=== PATIENT | female | born 1995 | race American Indian/Alaskan Native ===

== ENCOUNTER 2018-07-06 09:26 | Day surgery (SDC) | payer MEDICAID ==
[2018-07-06] MEDS ORDERED: ZOFRAN IV PRN (09:54)
[2018-07-06] MEDS ORDERED: DILAUDID IV PRN (09:54)
--- NOTE | 2018-07-06 09:56 | Anesthesia Day of Surgery ---
Anesthesia Day of Surgery - Day of Surgery Patient Examined: Yes Patient H&P Reviewed: Yes Patient is NPO: Yes Beta Blockers: No (N/A)
--- NOTE | 2018-07-06 09:59 | Anesthesia Consultation ---
Anesthesia Consult and Med Hx Date of service: 07/06/18 - Airway Anesthetic Teeth Evaluation: Good ROM Head & Neck: Adequate Mental/Hyoid Distance: Adequate Mallampati Class: Class II Intubation Access Assessment: Probably Good - Pulmonary Exam CTA: Yes - Cardiac Exam Cardiac Exam: No Murmur - Pre-Operative Health Status ASA Pre-Surgery Classification: ASA3 Proposed Anesthetic Plan: General - Pulmonary Hx Smoking: Yes (1 cig/day x2yrs) Hx Asthma: No Hx Respiratory Symptoms: No SOB: No COPD: No Hx Pneumonia: No - Cardiovascular System Hx Hypertension: No - Central Nervous System Hx Neuromuscular Disorder: No Hx Seizures: No Hx Psychiatric Problems: Yes - Gastrointestinal Hx Gastroesophageal Reflux Disease: Yes (diet controlled; asymptomatic today) - Endocrine Hx Renal Disease: No Hx End Stage Renal Disease: No Hx Insulin Dependent Diabetes: No Hx Non-Insulin Dependent Diabetes: No Hx Thyroid Disease: No - Hematic Hx Anemia: Yes (Past hx) Hx Sickle Cell Disease: No - Other Systems Hx Alcohol Use: Yes (occas) Hx Cancer: No Hx Obesity: Yes (BMI 45) - Additional Comments Anesthesia Medical History Comments: PMH smoking, obesity. No hx anesthetic complications.
[2018-07-06] MEDS ORDERED: VERSED IV NR (10:00)
[2018-07-06] MEDS ORDERED: LACTATED RINGERS 1,000 ML IV SCH ×2 (10:00→12:00)
[2018-07-06] MEDS ORDERED: XYLOCAINE MPF 2% ONE (11:53)
[2018-07-06] MEDS ORDERED: DIPRIVAN 10 MG/ML IV ONE (11:53)
[2018-07-06] MEDS ORDERED: SUBLIMAZE ONE (11:54)
[2018-07-06] MEDS ORDERED: METHERGINE IM ONE ×2 (12:44→12:47)
[2018-07-06] MEDS ORDERED: NACL 0.9% IR ONE (12:44)
[2018-07-06] MEDS ORDERED: TORADOL ONE (13:00)
[2018-07-06] MEDS ORDERED: ZOFRAN ONE (13:00)
--- NOTE | 2018-07-06 13:59 | Operative Report ---
Operative Report Operative Report: Preoperative diagnosis: Missed . Postoperative diagnosis: Same. Procedure: Suction dilation and curettage. Surgeon: Dr. Walters Salt Lifter: none Anesthesia: general IVF: RL 1 liter EBL: 100 mL Complications: none Procedure details: The risks, benefits, and alternatives of the procedure were discussed in detail with the patient which included but not limited to the risk of infection, hemorrhage requiring blood transfusion, and uterine perforation. The patient expressed understanding, her questions were answered, and she gave informed consent. The patient was taken to the operating room with an IV fluid infusing Ringers lactate. In the operating room, she was placed in the dorsal supine position and given general anesthesia. She was then placed on the stirrups in a dorsolithotomy position. The perineum, vagina, and cervix were washed and she was prepared and draped in usual sterile fashion. Examination under anesthesia revealed normal external genitalia and vagina. The cervix was closed and posterior, with no gross lesions, no bleeding. The uterus was 9 week size, anteverted and mobile. The adnexae were nonpalpable. A weighted speculum was placed on the posterior vaginal wall. The anterior lip of the cervix was grasped a single-tooth tenaculum. The cervical os was dilated. An 8 mm suction curette was connected to the suction device and introduced into the uterine cavity up to the fundus. The suction device was turned on and the curette was rotated. Moderate amount of products of conception was suctioned. The suction was removed and a gentle curettage was performed until a gritty texture was noticed. The suction device was re-introduced into the uterine cavity and it was rotated to clear the uterus of the remaining products of conception. The instruments were then removed from the uterine cavity. The counts of laps, needles, sponges, and instruments were correct 2. The patient tolerated the procedure well. She was awakened from the anesthesia and taken to the recovery room in a stable condition.
--- NOTE | 2018-07-06 14:19 | Post Anesthesia Evaluation ---
- Post Anesthesia Evaluation Patient Participated: Yes Airway Patent: Yes Stable Respiratory Function: Yes Nausea/Vomiting: Yes (Mild, resolved with IV antiemetics) Temp > 96.8F: Yes Pain Manageable: Yes Adequeate Hydration: Yes Anesthesia Complications: No Block Receding Appropriately: Not Applicable Patient on Ventilator: No
[2018-07-06 17:50] VITALS: BP 135/68
== END 2018-07-06 14:40 | disposition home or self-care (01) ==
LOC: OR 09:26
PROVIDERS: ATTEND Obstetrics & Gynecology
DX: O02.1 Missed abortion (principal); K21.9 Gastro-esophageal reflux disease without esophagitis; F32.9 Major depressive disorder, single episode, unspecified; F41.9 Anxiety disorder, unspecified; G43.909 Migraine, unspecified, not intractable, without status migrainosus; F17.210 Nicotine dependence, cigarettes, uncomplicated; E66.9 Obesity, unspecified; Z68.42 Body mass index [BMI] 45.0-49.9, adult; Z72.89 Other problems related to lifestyle; Z98.890 Other specified postprocedural states
CPT/HCPCS: 59820; 88305; J1885; J2210; J2250; J2405; J2704; J3010; J7120

== ENCOUNTER 2018-12-30 15:06 | Emergency (ER) | payer MEDICAID, OTHER ==
--- NOTE | 2018-12-30 16:12 | Emergency Department Report ---
ED General Adult HPI - General Chief complaint: High BP Stated complaint: 16 WKS /HBP 185/167 Time Seen by Provider: 12/30/18 15:29 Source: patient Mode of arrival: Ambulatory Limitations: No Limitations - History of Present Illness Initial comments: Ms. Barroso is a very pleasant, intelligent 23 yo female who is currently 16 weeks . She has had fluctuating blood pressure reading for several months. Has been followed closely by primary OBGYN and [facility] high risk. Has had mild headache which is typical for patient. Currently pain free. No chest pain. No blurry vision. Has been taking BP readings 3x/day. SBP range from 130-180 mm Hg. Only borderline high in physician office. This is patient's fourth . 2 vaginal deliveries. Miscarriage last summer requiring D&C -: Gradual, month(s) (3) Severity scale (0 -10): 0 Consistency: intermittent Improves with: rest Associated Symptoms: denies other symptoms Treatments Prior to Arrival: none - Related Data Home Medications Medication Instructions Recorded Confirmed Last Taken No Known Home Medications [No 10/25/13 07/05/18 Unknown Reported Home Medications] Allergies Allergy/AdvReac Type Severity Reaction Status Date / Time No Known Allergies Allergy Verified 12/04/18 08:57 ED Review of Systems ROS: Stated complaint: 16 WKS /HBP 185/167 Other details as noted in HPI Comment: All other systems reviewed and negative Constitutional: denies: fever, malaise Cardiovascular: denies: chest pain ED Past Medical Hx - Past Medical History Previous Medical History?: Yes Hx Hypertension: No Hx Congestive Heart Failure: No Hx Diabetes: No Hx Deep Vein Thrombosis: No Hx Renal Disease: No Hx Sickle Cell Disease: No Hx Headaches / Migraines: Yes (Migraines) Hx Seizures: No Hx Asthma: No Hx COPD: No Hx HIV: No Additional medical history: miscarriage. Herpes 2. Kawasaki disease age 2 - Surgical History Past Surgical History?: Yes Additional Surgical History: D&C sinus surgery I&D - Family History Family history: hypertension - Social History Smoking Status: Former Smoker Substance Use Type: None - Medications Home Medications: Home Medications Medication Instructions Recorded Confirmed Last Taken Type No Known Home Medications [No 10/25/13 07/05/18 Unknown History Reported Home Medications] ED Physical Exam - General Limitations: No Limitations ED Course Vital Signs 12/30/18 12/30/18 12/30/18 15:16 15:35 15:36 Temperature 98 F 99.1 F Pulse Rate 100 H 105 H Respiratory 16 18 18 Rate Blood Pressure 142/92 Blood Pressure 114/77 [Left] O2 Sat by Pulse 100 100 100 Oximetry ED Medical Decision Making - Medical Decision Making Asymptomatic elevated blood pressure readings, BP 108/64 here in ED. Recommended taking BP equipment to next physician appointment on Wednesday to confirm appropriate reading. Given reassurance Dc'd home No current complications according to presentation today Critical care attestation.: If time is entered above; I have spent that time in minutes in the direct care of this critically ill patient, excluding procedure time. ED Disposition Clinical Impression: Elevated blood pressure affecting in first trimester, antepartum Disposition: DC- TO HOME OR SELFCARE Is pt being admited?: No Does the pt Need Aspirin: No Condition: Stable Additional Instructions: Please take your blood pressure machine to your next doctor's appointment to compare measurements.
== END 2018-12-30 16:20 | disposition home or self-care (01) ==
LOC: ED 15:06
CPT/HCPCS: 99282

== ENCOUNTER 2019-05-03 19:26 | Outpatient (CLI) | payer MEDICAID ==
[2019-05-03 21:18] LABS: Bilirubin,Urine NEG (Negative); Blood,Urine NEG (Negative); Color,Urine Yellow (Yellow); Protein,Urine <15 mg/dL mg/dL (Negative); Urobilinogen,Urine < 2.0 mg/dL (<2.0)
[2019-05-03 21:56] LABS: Hematocrit 34.4 % (30.3-42.9); Hemoglobin 11.2 gm/dl (10.1-14.3); Mean Corpuscular HGB Conc 33 % (30-34); Mean Corpuscular Volume 80 fl (79-97); Platelet Count 275 K/mm3 (140-440); Red Blood Count 4.32 M/mm3 (3.65-5.03); Red Cell Distribution Width 14.8 % (13.2-15.2)
[2019-05-03 22:19] LABS: Alanine Aminotransferase 19 units/L (7-56)
[2019-05-03] MEDS ORDERED: PERCOCET 5/325 PO ONE (23:01)
[2019-05-04 00:11] VITALS: BP 120/65
== END 2019-05-04 00:20 | disposition home or self-care (01) ==
LOC: TRG 19:26
PROVIDERS: ATTEND Obstetrics & Gynecology
DX: O26.893 Other specified pregnancy related conditions, third trimester (principal); R51 Headache; M79.606 Pain in leg, unspecified; R42 Dizziness and giddiness; Z3A.33 33 weeks gestation of pregnancy
CPT/HCPCS: 36415; 59025; 81001; 82565; 83615; 84450; 84460; 84550; 85027

== ENCOUNTER 2019-05-05 14:56 | Outpatient (CLI) | payer MEDICAID ==
[2019-05-05 16:30] LABS: Alanine Aminotransferase 18 units/L (7-56)
[2019-05-05 16:38] LABS: Bilirubin,Urine NEG (Negative); Blood,Urine NEG (Negative); Color,Urine Yellow (Yellow); Mucus,Urine 1+ /HPF; Protein,Urine <15 mg/dL mg/dL (Negative); Urobilinogen,Urine < 2.0 mg/dL (<2.0); WBC,Urine < 1.0 /HPF (0.0-6.0)
[2019-05-05 17:15] LABS: Hematocrit 34.8 % (30.3-42.9); Hemoglobin 11.1 gm/dl (10.1-14.3); Mean Corpuscular HGB Conc 32 % (30-34); Mean Corpuscular Volume 81 fl (79-97); Platelet Count 319 K/mm3 (140-440); Red Blood Count 4.31 M/mm3 (3.65-5.03); Red Cell Distribution Width 15.1 % (13.2-15.2)
[2019-05-05 17:18] VITALS: BP 118/76
== END 2019-05-05 17:54 | disposition home or self-care (01) ==
LOC: TRG 14:56
PROVIDERS: ATTEND Obstetrics & Gynecology
DX: O47.03 False labor before 37 completed weeks of gestation, third trimester (principal); O13.3 Gestational [pregnancy-induced] hypertension without significant proteinuria, third trimester; Z3A.34 34 weeks gestation of pregnancy
CPT/HCPCS: 36415; 59025; 81001; 82565; 83615; 84450; 84460; 84550; 85027

== ENCOUNTER 2019-05-25 22:35 | Outpatient (CLI) | payer MEDICAID ==
[2019-05-25 22:56] VITALS: BP 130/89
== END 2019-05-26 00:25 | disposition home or self-care (01) ==
LOC: TRG 22:35
PROVIDERS: ATTEND Obstetrics & Gynecology
DX: O47.03 False labor before 37 completed weeks of gestation, third trimester (principal); O13.3 Gestational [pregnancy-induced] hypertension without significant proteinuria, third trimester; Z3A.36 36 weeks gestation of pregnancy
CPT/HCPCS: 59025

== ENCOUNTER 2019-05-26 20:29 | Inpatient (IN) | payer MEDICAID ==
[2019-05-26] MEDS ORDERED: AMPICILLIN/NS 2 GM/100 ML 2 GM/100 ML BAG IV ONE (20:49)
[2019-05-26] MEDS ORDERED: XYLOCAINE 2% INFILTRATI ONE (20:49)
[2019-05-26] MEDS ORDERED: BRETHINE SUB-Q PRN (20:49)
[2019-05-26] MEDS ORDERED: PITOCin/NS 20 UNIT/1000ML DRIP 20 UNITS/1,000 ML BAG IV SCH (21:00)
[2019-05-26 22:11] LABS: Hemoglobin 10.5 gm/dl (10.1-14.3); Mean Corpuscular HGB Conc 34 % (30-34); Mean Corpuscular Volume 80 fl (79-97); Platelet Count 287 K/mm3 (140-440); Red Cell Distribution Width 15.4 % (13.2-15.2)
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
[2019-05-26 22:35] LABS: Alanine Aminotransferase 11 units/L (7-56); BUN/Creatinine Ratio 11; Blood Urea Nitrogen 8 mg/dL (7-17); Calcium 8.5 mg/dL (8.4-10.2); Hemolysis Index 0; Uric Acid 5.9 mg/dL (3.5-7.6)
[2019-05-26] MEDS: LACTATED RINGERS 1,000 ML IV SCH (23:00)
[2019-05-27 00:01] LABS: Bilirubin,Urine NEG (Negative); Blood,Urine NEG (Negative); Color,Urine Yellow (Yellow); Mucus,Urine FEW /HPF; Protein,Urine <15 mg/dL mg/dL (Negative); Urobilinogen,Urine < 2.0 mg/dL (<2.0)
[2019-05-27] MEDS: PITOCin/NS 30 UNIT/500ML 30 UNITS/500 ML BAG IV SCH ×2 (00:19→16:00)
[2019-05-27] MEDS: VALTREX PO SCH ×3 (00:31→21:45)
[2019-05-27] MEDS: NORMODYNE PO SCH ×2 (00:31→09:48)
[2019-05-27] MEDS ORDERED: TYLENOL PO PRN (05:51)
[2019-05-27] MEDS: AMPICILLIN/NS 1 GM/50 ML 1 GM/50 ML BAG IV SCH ×5 (06:18→21:45)
[2019-05-27] MEDS: SUBLIMAZE IV PRN ×2 (08:25→19:59)
--- NOTE | 2019-05-27 09:05 | Progress Note ---
Assessment and Plan A: at 37 1/7 weeks gestation. Mild preeclampsia (BPs controlled with Labetalol). IUGR. GBS positive (on prophylaxis). HSV 2 positive (suppressed with Valtrex and no lesions or prodromal symptoms). Obesity. P: Continue Pitocin induction of labor. Continuous EFM. Continue po Labetalol and po Valtrex. Anticipate vaginal . Subjective - Subjective Date of service: 05/27/19 Principal diagnosis: Mild preeclampsia at 37 1/7 weeks gestation Interval history: Labor is being induced at 37 1/7 weeks gestation due to mild preeclampsia, IUGR. BPs have been in normal range overnight. Patient denies headache, visual disturbance, nausea or vomiting, epigastric pain. Patient reports mild edema of hands and feet bilaterally. Patient received low dose Pitocin overnight. Patient denies leaking of fluid or vaginal bleeding. She reports active movement. Patient reports: movement normal, contractions, no new complaints, no loss of fluid, no vaginal bleeding Objective - Vital Signs Vital Signs: Vital Signs - 12hr 05/26/19 05/26/19 05/26/19 21:18 21:21 23:59 Temperature 98.4 F Pulse Rate 79 79 88 Respiratory 16 Rate Blood Pressure 130/71 114/57 Blood Pressure 130/71 [Right] 05/27/19 05/27/19 05/27/19 00:30 00:31 01:00 Temperature Pulse Rate 84 84 88 Respiratory Rate Blood Pressure 115/56 115/56 128/65 Blood Pressure [Right] 05/27/19 05/27/19 05/27/19 01:30 02:00 02:30 Temperature Pulse Rate 81 89 85 Respiratory Rate Blood Pressure 104/54 116/55 105/48 Blood Pressure [Right] 05/27/19 05/27/19 05/27/19 03:31 04:01 04:31 Temperature Pulse Rate 99 H 85 110 H Respiratory Rate Blood Pressure 103/51 104/55 100/55 Blood Pressure [Right] 05/27/19 05/27/19 05/27/19 05:39 06:00 06:21 Temperature 98.4 F Pulse Rate 92 H 73 Respiratory 16 14 Rate Blood Pressure 110/53 109/56 Blood Pressure 118/57 [Right] 05/27/19 05/27/19 05/27/19 06:32 07:00 07:30 Temperature Pulse Rate 73 76 72 Respiratory Rate Blood Pressure 118/57 123/58 124/56 Blood Pressure [Right] 05/27/19 05/27/19 05/27/19 08:00 08:03 08:08 Temperature 98.2 F Pulse Rate 87 88 Respiratory 16 Rate Blood Pressure 108/51 109/54 Blood Pressure [Right] 05/27/19 08:30 Temperature Pulse Rate 74 Respiratory Rate Blood Pressure 118/66 Blood Pressure [Right] - Exam Abdomen: Present: normal appearance, soft. Absent: distention, tenderness, guarding, rigidity Uterus: Present: normal, fundal height above umbilicus. Absent: tenderness FHR: category 1 Uterine Contraction Monitor Mode: External Uterine Contraction Pattern: Irregular Uterine Contraction Intensity: Moderate Extremities: edema - Labs Labs: Abnormal Labs 05/26/19 05/26/19 21:44 21:44 WBC 11.8 H MCH 27 L RDW 15.4 H Carbon Dioxide 21 L Lactate Dehydrogenase 201 H Albumin 3.0 L Laboratory Results - last 24 hr 05/26/19 05/26/19 05/26/19 21:44 21:44 21:44 WBC 11.8 H RBC 3.90 Hgb 10.5 Hct 31.0 MCV 80 MCH 27 L MCHC 34 RDW 15.4 H Plt Count 287 Sodium 137 Potassium 4.1 Chloride 103.5 Carbon Dioxide 21 L Anion Gap 17 BUN 8 Creatinine 0.7 Estimated GFR > 60 BUN/Creatinine Ratio 11 Glucose 72 Uric Acid 5.9 Calcium 8.5 Total Bilirubin 0.20 AST 12 ALT 11 Alkaline Phosphatase 115 Lactate Dehydrogenase 201 H Total Protein 6.8 Albumin 3.0 L Albumin/Globulin Ratio 0.8 Urine Color Urine Turbidity Urine pH Ur Specific [place] Urine Protein Urine Glucose (UA) Urine Ketones Urine Blood Urine Nitrite Urine Bilirubin Urine Urobilinogen Ur Leukocyte Esterase Urine WBC (Auto) Urine RBC (Auto) U Epithel Cells (Auto) Urine Mucus Blood Type B POSITIVE Antibody Screen Negative 05/26/19 22:30 WBC RBC Hgb Hct MCV MCH MCHC RDW Plt Count Sodium Potassium Chloride Carbon Dioxide Anion Gap BUN Creatinine Estimated GFR BUN/Creatinine Ratio Glucose Uric Acid Calcium Total Bilirubin AST ALT Alkaline Phosphatase Lactate Dehydrogenase Total Protein Albumin Albumin/Globulin Ratio Urine Color Yellow Urine Turbidity Clear Urine pH 6.0 Ur Specific [place] 1.015 Urine Protein <15 mg/dl Urine Glucose (UA) Neg Urine Ketones Neg Urine Blood Neg Urine Nitrite Neg Urine Bilirubin Neg Urine Urobilinogen < 2.0 Ur Leukocyte Esterase Neg Urine WBC (Auto) 1.0 Urine RBC (Auto) 1.0 U Epithel Cells (Auto) 3.0 Urine Mucus Few Blood Type Antibody Screen
[2019-05-27] MEDS ORDERED: NARCAN 2 MG/2 ML IV PRN (21:36)
--- NOTE | 2019-05-27 21:36 | Anesthesia Day of Surgery ---
Anesthesia Day of Surgery - Day of Surgery Patient Examined: Yes Patient H&P Reviewed: Yes Patient is NPO: No
--- NOTE | 2019-05-27 21:36 | Anesthesia Consultation ---
Anesthesia Consult and Med Hx Date of service: 05/27/19 - Airway Anesthetic Teeth Evaluation: Caps ROM Head & Neck: Adequate Mental/Hyoid Distance: Adequate Mallampati Class: Class II Intubation Access Assessment: Good - Pulmonary Exam CTA: Yes - Cardiac Exam Cardiac Exam: RRR - Pre-Operative Health Status ASA Pre-Surgery Classification: ASA2, ASA3 Proposed Anesthetic Plan: Epidural - Pulmonary Hx Smoking: Yes (1 cig/day x2yrs) Hx Asthma: No Hx Respiratory Symptoms: No SOB: No COPD: No Hx Pneumonia: No - Cardiovascular System Hx Hypertension: Yes ( only) - Central Nervous System Hx Neuromuscular Disorder: No Hx Seizures: No Hx Psychiatric Problems: Yes (depression/anxiety (no meds during )) - Gastrointestinal Hx Gastroesophageal Reflux Disease: Yes (diet controlled; asymptomatic today) - Endocrine Hx Renal Disease: No Hx End Stage Renal Disease: No Hx Insulin Dependent Diabetes: No Hx Non-Insulin Dependent Diabetes: No Hx Thyroid Disease: No Hx Hypothyroidism: No Hx Hyperthyroidism: No - Hematic Hx Anemia: Yes Hx Sickle Cell Disease: No - Other Systems Hx Alcohol Use: No Hx Cancer: No Hx Obesity: Yes (BMI 45)
[2019-05-27] MEDS: LACTATED RINGERS 1,000 ML IV SCH (21:45)
[2019-05-27] MEDS ORDERED: fentaNYL-BUPIV 2 MCG/ML-0.125% 200 MCG/100 ML BAG EPIDURAL SCH (22:00)
[2019-05-27] MEDS ORDERED: DULCOLAX PR PRN (22:41)
[2019-05-27] MEDS ORDERED: MILK OF MAGNESIA PO PRN (22:41)
[2019-05-27] MEDS ORDERED: TUCKS PAD TP PRN (22:41)
[2019-05-27] MEDS ORDERED: LANSINOH TP PRN (22:41)
[2019-05-27] MEDS ORDERED: BENADRYL PO PRN (22:41)
--- NOTE | 2019-05-27 22:48 | Procedure Note ---
OB Delivery Note - Delivery Date of Delivery: 05/27/19 Surgeon: GLEN OGLESBY Estimated blood loss: 200cc - Vaginal Delivery presentation: vertex Delivery position: OA Intrapartum events: none Delivery induction: oxytocin Delivery monitor: external FHT, external uterine Route of delivery: Delivery placenta: spontaneous Delivery cord: 3 umbilical vessels Delivery laceration: none Anesthesia: epidural Delivery comments: Spontaneous vaginal delivery at 22:03 of liveborn female weighing 5 lb. 1 oz. over intact perineum with apgars of 8/9. Epidural anesthesia. Baby placed skin to skin on mom's chest immediately after . Spontaneous cry and respirations. Baby bulb suctioned and dried. 3 vessel cord double clamped and cut. Spontaneous delivery of intact placenta and membranes by holliday mechanism. EBL 200 cc. Pitocin to IV fluids after delivery of placenta. Fundus firm and midline. Vaginal sweep negative. No lacerations noted. Sponge count correct. Mother and baby stable in birthing room.
[2019-05-27] MEDS ORDERED: SODIUM CHLORIDE FLUSH SYRINGE 10 ML IV NR (23:00)
[2019-05-28] MEDS: IBUPROFEN PO SCH ×3 (00:44→20:51)
[2019-05-28] MEDS: NORCO 5/325 PO PRN (00:44)
--- NOTE | 2019-05-28 11:00 | Progress Note ---
Assessment and Plan A: day 1 S/P spontaneous vaginal delivery. P: Patient to ambulate. Continue current management. Subjective - Subjective Date of service: 05/28/19 Principal diagnosis: day 1 S/P Interval history: day 1 S/P spontaneous vaginal delivery. Doing well. Patient reports a small amount of lochia. Voiding without difficulty, passing gas, tolerating a regular diet without nausea or vomiting, ambulating well. Patient denies cough, chest pain, SOB, HODGE, dizziness, abdominal pain, leg pain, or heavy vaginal bleeding. Patient reports: appetite normal, voiding normally, pain well controlled, flatus, ambulating normally, no dizzy ambulation, no nauseated : doing well Objective - Vital Signs Latest vital signs: Vital Signs Temp Pulse Resp BP BP Pulse Ox 05/28/19 08:51 98.2 F 71 18 134/73 100 05/28/19 04:10 98.2 F 64 20 102/52 97 05/28/19 00:25 98.4 F 72 18 120/57 98 05/27/19 23:31 92 H 128/60 05/27/19 23:16 69 125/61 05/27/19 23:01 76 134/70 05/27/19 22:46 99 H 134/60 05/27/19 22:31 92 H 146/80 05/27/19 22:16 104 H 117/70 05/27/19 21:59 113 H 99 05/27/19 21:54 71 99 05/27/19 21:49 82 99 05/27/19 21:48 72 115/55 05/27/19 21:46 68 112/54 05/27/19 21:44 70 110/56 98 05/27/19 21:42 67 111/53 05/27/19 21:40 71 109/52 05/27/19 21:39 72 98 05/27/19 21:38 69 105/51 05/27/19 21:36 70 103/52 05/27/19 21:34 68 100/50 99 05/27/19 21:32 88 100/53 05/27/19 21:30 78 111/53 05/27/19 21:29 87 97 05/27/19 21:28 78 111/55 05/27/19 21:26 54 L 92 05/27/19 21:24 95 H 98 06/29/19 21:23 86 108/51 05/27/19 21:19 91 H 119/56 98 05/27/19 19:46 83 142/90 05/27/19 19:40 97.9 F 05/27/19 18:30 93 H 111/58 05/27/19 18:02 116 H 135/79 05/27/19 17:30 76 121/59 05/27/19 17:28 82 121/60 05/27/19 17:02 79 135/65 05/27/19 16:30 83 123/59 05/27/19 16:01 120 H 130/64 05/27/19 15:30 108 H 138/85 05/27/19 15:01 98 H 127/61 05/27/19 14:30 74 130/58 05/27/19 14:00 80 121/60 05/27/19 13:31 89 126/61 05/27/19 12:32 91 H 112/71 05/27/19 12:00 86 115/66 05/27/19 11:30 87 119/73 05/27/19 11:01 85 110/62 Intake and Output 05/27/19 05/28/19 05/28/19 23:59 07:59 15:59 Intake Total 58.333 600 Output Total 100 1450 Balance -41.667 -850 Intake: IV 58.333 AMPICILLIN/NS 1 GM/50 ML 50 1 gm In 50 ml @ 100 mls/ hr IV Q4HR [facility] Rx#: [id number] PITOCin/NS 30 UNIT/500ML 8.333 30 units In 500 ml @ Per Protocol IV TITR ABY Rx#: [id number] Oral 600 Output: Urine 100 1450 Straight 100 Void 1450 Other: Total, Intake Amount 360 Total, Output Amount 550 # Voids Void 3 Estimated Blood Loss 150 - Exam Abdomen: Present: normal appearance, soft. Absent: distention, tenderness, guarding, rigidity Uterus: Present: normal, firm, fundal height below umbilicus. Absent: bogginess, tenderness Extremities: Present: normal, edema. Absent: tenderness
[2019-05-28 11:08] LABS: Hemoglobin 10.5 gm/dl (10.1-14.3)
[2019-05-29] MEDS: IBUPROFEN PO SCH (05:34)
[2019-05-29] MEDS ORDERED: BOOSTRIX IM ONE (06:00)
--- NOTE | 2019-05-29 12:11 | Progress Note ---
Assessment and Plan - Patient Problems (1) Status post normal vaginal delivery Current Visit: Yes Status: Acute Plan to address problem: PPD 2 - headache Continue routine PP orders Anticipate discharge in 24 hours if PIH labs WNL (2) Headache Current Visit: Yes Status: Acute Qualifiers: Headache chronicity pattern: acute headache Plan to address problem: BPs stable: 130/82, 132/76, 118/75 Denies visual disturbances, RUQ pain or N/V PIH labs ordered On NORCO and Ibuprofen prn for pain Subjective - Subjective Date of service: 05/29/19 Principal diagnosis: PPD #2; s/p Interval history: see H&P, OB Progress Note, OB Delivery Procedure Note and PP/[employer] Progress Note Patient reports: appetite normal, voiding normally, pain well controlled, ambulating normally, other (reports headache but denies visual disturbances or RUQ pain), no dizzy ambulation, no nauseated [place]: doing well, nursing well Objective - Vital Signs Latest vital signs: Vital Signs Temp Pulse Resp BP BP Pulse Ox 05/29/19 09:00 98.4 F 79 20 118/75 05/29/19 05:34 20 05/29/19 00:40 98.0 F 79 18 132/76 98 05/28/19 20:51 20 05/28/19 18:02 98.5 F 18 05/28/19 18:01 122.0 F H 77 18 130/82 97 05/28/19 12:50 98.5 F 72 18 115/61 99 Intake and Output 05/28/19 05/29/19 05/29/19 23:59 07:59 15:59 Intake Total 480 600 240 Balance 480 600 240 Intake: Oral 480 240 Intake, Free Water 600 Other: Total, Intake Amount 480 240 # Voids Void 1 2 # Bowel Movements 2 - Exam Cardiovascular: Present: Regular rate Lungs: Present: Clear to auscultation Abdomen: Present: normal appearance, soft Vulva: both: normal Uterus: Present: normal, firm, fundal height below umbilicus Extremities: Present: edema Comments: scant lochia
[2019-05-29 13:31] LABS: Hematocrit 33.7 % (30.3-42.9); Mean Corpuscular HGB Conc 33 % (30-34); Mean Corpuscular Volume 80 fl (79-97); Platelet Count 314 K/mm3 (140-440); Red Cell Distribution Width 15.7 % (13.2-15.2)
[2019-05-29] MEDS: NORCO 5/325 PO PRN ×2 (14:32→22:08)
[2019-05-29 22:08] LABS: Bilirubin,Urine NEG (Negative); Blood,Urine LG (Negative); Color,Urine Yellow (Yellow); Protein,Urine <15 mg/dL mg/dL (Negative); Urobilinogen,Urine < 2.0 mg/dL (<2.0)
[2019-05-30] MEDS: IBUPROFEN PO SCH ×2 (00:10→05:44)
[2019-05-30 08:11] VITALS: BP 135/80
--- NOTE | 2019-05-30 12:46 | Progress Note ---
Assessment and Plan - Patient Problems (1) Status post normal vaginal delivery Current Visit: Yes Status: Acute Plan to address problem: D/C today f/u in office in 1 week for B/P check (2) Anxiety and depression Current Visit: Yes Status: Acute Plan to address problem: Stable No suicidal/homicidal ideations (3) Obesity Current Visit: Yes Status: Acute Subjective - Subjective Date of service: 05/30/19 Principal diagnosis: PPD #3; s/p Interval history: See admission H & P, OB delivery summary and PP progress notes Patient reports: appetite normal, voiding normally, pain well controlled, flatus, bowel movement, ambulating normally : doing well, bottle feeding (and ) Objective - Vital Signs Latest vital signs: Vital Signs Temp Pulse Resp BP BP Pulse Ox 05/30/19 07:44 98.1 F 57 L 18 135/80 05/30/19 05:44 20 05/30/19 00:49 97.8 F 57 L 20 117/68 100 05/30/19 00:10 20 05/29/19 22:08 18 05/29/19 16:05 98.3 F 102 H 18 115/71 Intake and Output 05/29/19 05/30/19 05/30/19 23:59 07:59 15:59 Intake Total 360 840 Balance 360 840 Intake: Oral 360 840 Other: Total, Intake Amount 240 480 # Voids Void 1 1 - Exam Breasts: Present: normal Cardiovascular: Present: Regular rate Lungs: Present: Normal air movement Abdomen: Present: soft, normal bowel sounds Uterus: Present: firm, fundal height below umbilicus (U-2) Extremities: Present: normal Deep Tendon Reflex Grade: Normal +2 - Labs Labs: Abnormal lab results 05/29/19 05/29/19 Range/Units 13:16 13:16 MCH 26 L (28-32) pg RDW 15.7 H (13.2-15.2) % Lactate Dehydrogenase 247 H (91-180) units/L
--- NOTE | 2019-05-30 12:51 | Discharge Summary ---
Providers - Providers Date of Admission: 05/27/19 19:00 Date of discharge: 05/30/19 Attending physician: CIERA FAUSTIN MD Primary care physician: CIERA FAUSTIN MD Hospitalization Reason for admission: induction of labor Delivery: Episiotomy: none Laceration: none Incision: normal Other procedures: none complications: none Discharge diagnosis: IUP at term delivered [place] baby: female Hospital course: See admission H & P, OB delivery summary and PP progress notes Condition at discharge: Stable Disposition: DC-01 TO HOME OR SELFCARE - Discharge Diagnoses (1) Status post normal vaginal delivery Status: Acute (2) Anxiety and depression Status: Acute (3) Obesity Status: Acute Plan - Provider Discharge Summary Activity: routine, no sex for 6 weeks, no heavy lifting 4 weeks, no strenuous exercise Diet: routine Instructions: routine Additional instructions: [] Smoking cessation referral if applicable(refer to patient education folder for contact #) [] Refer to [facility]'s [facility] Booklet Call your doctor immediately for: * Fever > 100.5 * Heavy vaginal bleeding ( >1 pad per hour) * Severe persistent headache * Shortness of breath * Reddened, hot, painful area to leg or breast * Drainage or odor from incision. * F/U in 1 week for B/P check - Follow up plan Follow up: CIERA FAUSTIN MD [Primary Care Provider] - 7 Days
== END 2019-05-30 16:30 | disposition home or self-care (01) | DRG 774 ==
LOC: LD 20:29 → UNDOADMIN 20:29 → LD 05-27 19:00 → OB 05-28 00:13
PROVIDERS: ADMIT Obstetrics & Gynecology; ATTEND Obstetrics & Gynecology
PROC: 10E0XZZ Delivery of Products of Conception, External Approach (ICD-10-PCS; principal; 2019-05-27)
PROC: 3E033VJ Introduction of Other Hormone into Peripheral Vein, Percutaneous Approach (ICD-10-PCS; 2019-05-27)
PROC: 3E0R3BZ Introduction of Anesthetic Agent into Spinal Canal, Percutaneous Approach (ICD-10-PCS; 2019-05-27)
PROC: 00HU33Z Insertion of Infusion Device into Spinal Canal, Percutaneous Approach (ICD-10-PCS; 2019-05-27)
DX: O14.04 Mild to moderate pre-eclampsia, complicating childbirth (principal); O99.344 Other mental disorders complicating childbirth; O98.52 Other viral diseases complicating childbirth; O99.334 Smoking (tobacco) complicating childbirth; F17.200 Nicotine dependence, unspecified, uncomplicated; F32.9 Major depressive disorder, single episode, unspecified; O99.62 Diseases of the digestive system complicating childbirth; K21.9 Gastro-esophageal reflux disease without esophagitis; O99.214 Obesity complicating childbirth; E66.9 Obesity, unspecified; O36.5930 Maternal care for other known or suspected poor fetal growth, third trimester, not applicable or unspecified; O99.824 Streptococcus B carrier state complicating childbirth; B00.9 Herpesviral infection, unspecified; Z3A.37 37 weeks gestation of pregnancy; Z37.0 Single live birth; Z82.49 Family history of ischemic heart disease and other diseases of the circulatory system; Z79.899 Other long term (current) drug therapy
CPT/HCPCS: 36415; 59025; 80053; 81001; 83615; 84450; 84460; 84550; 85014; 85018; 85027; 86592; 86850; 86900; 86901; 88307; 90471; 90715; G0378; A6250; J0290; J2590; J3010; J7120

== ENCOUNTER 2021-10-21 06:41 | Emergency (ER) | payer OTHER ==
--- NOTE | 2021-10-21 06:48 | Emergency Department Report ---
ED General Adult HPI - General Chief complaint: Chest Pain Stated complaint: CHEST PAIN PUI?: No Time Seen by Provider: 10/21/21 06:48 Source: patient, RN notes reviewed Mode of arrival: Ambulatory Limitations: No Limitations - History of Present Illness Initial comments: During the history and physical examination, I am chaperoned by Stephanie Penny This patient is a 26-year-old female. She is not known to myself previously. She has a history of Kawasaki disease, and was reportedly cleared by her heel painter from this perspective a few years ago, no ischemia, with past medical history of body mass index of 43.5. The patient presents to the ER today with a complaint of nonexertional intermittent nontraumatic central and left-sided chest wall pain, present for 4 days. The chest wall pain does not radiate to the back, arms or neck. There is no vomiting or diaphoresis. There is no personal or family history of DVT/PE/CAD/ACS. The patient has not attempted [id number] analgesia. Patient is right-hand dominant, and does a lot of heavy lifting for work. The patient denies severe headache, neck pain, abdominal pain, vomiting, weakness, numbness, leg pain, leg swelling, oral contraceptive use, DVT/PE risk factors. The chest wall pain does not radiate anywhere, is aching, sharp and throbbing, increases with palpation and decreases with rest. -: Gradual, days(s) Location: chest (Central and left-sided chest wall) Radiation: non-radiation Quality: other Consistency: other Improves with: other Worsens with: other - Related Data Home Medications Medication Instructions Recorded Confirmed Last Taken labetaloL [Labetalol 100mg TAB] 1 tab PO BID 05/03/19 05/27/19 05/26/19 09:00 Ferrous Sulfate [Iron 325 MG] 1 tab PO BID 05/25/19 05/27/19 05/26/19 09:00 Previous Rx's Medication Instructions Recorded Last Taken Type Famotidine [Pepcid] 20 mg PO BID #60 tablet 05/12/20 Unknown Rx Acetaminophen [Non-Aspirin Extra 500 mg PO Q6HR PRN #30 tablet 10/21/21 Unknown Rx Strength] Ibuprofen [Motrin] 600 mg PO Q8H PRN #30 tablet 10/21/21 Unknown Rx Allergies Allergy/AdvReac Type Severity Reaction Status Date / Time No Known Allergies Allergy Verified 05/03/19 20:57 ED Review of Systems ROS: Stated complaint: CHEST PAIN Other details as noted in HPI Constitutional: denies: fever Eyes: denies: vision change ENT: denies: epistaxis Respiratory: denies: cough Cardiovascular: chest pain Gastrointestinal: denies: abdominal pain, nausea, vomiting Musculoskeletal: myalgia Neurological: denies: weakness Hematological/Lymphatic: denies: easy bleeding ED Past Medical Hx - Past Medical History Previous Medical History?: Yes Hx Hypertension: Yes ( only) Hx Congestive Heart Failure: No Hx Diabetes: No Hx Deep Vein Thrombosis: No Hx Renal Disease: No Hx Sickle Cell Disease: No Hx Headaches / Migraines: Yes (Migraines) Hx Seizures: No Hx Asthma: No Hx COPD: No Hx HIV: No Additional medical history: miscarriage. Herpes 2. Kawasaki disease age 2 - Surgical History Past Surgical History?: Yes Additional Surgical History: D&C sinus surgery I&D - Social History Smoking Status: Current Every Day Smoker Substance Use Type: Alcohol - Medications Home Medications: Home Medications Medication Instructions Recorded Confirmed Last Taken Type labetaloL [Labetalol 100mg TAB] 1 tab PO BID 05/03/19 05/27/19 05/26/19 09:00 History Ferrous Sulfate [Iron 325 MG] 1 tab PO BID 05/25/19 05/27/19 05/26/19 09:00 History Famotidine [Pepcid] 20 mg PO BID #60 tablet 05/12/20 Unknown Rx Acetaminophen [Non-Aspirin Extra 500 mg PO Q6HR PRN #30 tablet 10/21/21 Unknown Rx Strength] Ibuprofen [Motrin] 600 mg PO Q8H PRN #30 tablet 10/21/21 Unknown Rx ED Physical Exam - General Limitations: No Limitations General appearance: alert, in no apparent distress, obese - Head Head exam: Present: atraumatic, normocephalic - Eye Eye exam: Present: normal appearance, EOMI. Absent: nystagmus - ENT ENT exam: Present: normal exam, normal orophraynx, mucous membranes moist, normal external ear exam - Neck Neck exam: Present: normal inspection, full ROM. Absent: tenderness, meningismus - Respiratory Respiratory exam: Present: normal lung sounds bilaterally, chest wall tenderness (Chaperoned by Stephanie Penny). Absent: respiratory distress, wheezes, rales, rhonchi, stridor - Cardiovascular Cardiovascular Exam: Present: regular rate, normal rhythm, normal heart sounds. Absent: bradycardia, tachycardia, irregular rhythm, systolic murmur, diastolic murmur, rubs, gallop - GI/Abdominal GI/Abdominal exam: Present: soft. Absent: distended, tenderness, guarding, rebound, rigid, pulsatile mass - Extremities Exam Extremities exam: Present: normal inspection, full ROM, other (2+ pulses noted in the bilateral upper and lower extremities. There is no palpable cord. negative Homans sign. Muscular compartments are soft. The pelvis is stable.). Absent: pedal edema, calf tenderness - Back Exam Back exam: Present: normal inspection, full ROM. Absent: tenderness, CVA tenderness (R), CVA tenderness (L), paraspinal tenderness, vertebral tenderness - Neurological Exam Neurological exam: Present: alert, oriented X3, normal gait, other (No facial droop. Tongue midline. Extraocular movements intact bilaterally. Facial sensation intact to light touch in V1, V2, V3 distribution bilaterally. 5 and a 5 strength in 4 extremities. Sensation intact to light touch in 4 extremities.). Absent: motor sensory deficit - Psychiatric Psychiatric exam: Present: normal affect, normal mood - Skin Skin exam: Present: warm, dry, intact, normal color. Absent: rash ED Course Vital Signs 10/21/21 07:53 Temperature 98.6 F Pulse Rate 73 Respiratory 18 Rate Blood Pressure 122/70 [Right] O2 Sat by Pulse 100 Oximetry ED Medical Decision Making - Lab Data Result diagrams: 10/21/21 07:05 10/21/21 07:05 Vital Signs 10/21/21 07:53 Temperature 98.6 F Pulse Rate 73 Respiratory 18 Rate Blood Pressure 122/70 [Right] O2 Sat by Pulse 100 Oximetry Lab Results 10/21/21 10/21/21 10/21/21 Range/Units 07:05 07:05 07:05 WBC 8.1 (4.5-11.0) K/mm3 RBC 4.58 (3.65-5.03) M/mm3 Hgb 12.2 (10.1-14.3) gm/dl Hct 39.0 (30.3-42.9) % MCV 85 (79-97) fl MCH 27 L (28-32) pg MCHC 31 (30-34) % RDW 13.9 (13.2-15.2) % Plt Count 293 (140-440) K/mm3 Lymph % (Auto) 18.3 (13.4-35.0) % Todd % (Auto) 5.3 (0.0-7.3) % Eos % (Auto) 1.8 (0.0-4.3) % Baso % (Auto) 0.4 (0.0-1.8) % Lymph # (Auto) 1.5 (1.2-5.4) K/mm3 Todd # (Auto) 0.4 (0.0-0.8) K/mm3 Eos # (Auto) 0.1 (0.0-0.4) K/mm3 Baso # (Auto) 0.0 (0.0-0.1) K/mm3 Seg Neutrophils % 74.2 H (40.0-70.0) % Seg Neutrophils # 6.0 (1.8-7.7) K/mm3 PT 13.6 (12.2-14.9) Sec. INR 0.94 (0.87-1.13) Sodium (137-145) mmol/L Potassium (3.6-5.0) mmol/L Chloride (98-107) mmol/L Carbon Dioxide (22-30) mmol/L Anion Gap mmol/L BUN (7-17) mg/dL Creatinine (0.6-1.2) mg/dL Estimated GFR ml/min BUN/Creatinine Ratio % Glucose (65-100) mg/dL Calcium (8.4-10.2) mg/dL Total Bilirubin (0.1-1.2) mg/dL AST (5-40) units/L ALT (7-56) units/L Alkaline Phosphatase (35-129) units/L Troponin T (0.00-0.029) ng/mL Total Protein (6.3-8.2) g/dL Albumin (3.9-5) g/dL Albumin/Globulin Ratio % HCG, Qual Negative (Negative) 10/21/21 Range/Units 07:05 WBC (4.5-11.0) K/mm3 RBC (3.65-5.03) M/mm3 Hgb (10.1-14.3) gm/dl Hct (30.3-42.9) % MCV (79-97) fl MCH (28-32) pg MCHC (30-34) % RDW (13.2-15.2) % Plt Count (140-440) K/mm3 Lymph % (Auto) (13.4-35.0) % Todd % (Auto) (0.0-7.3) % Eos % (Auto) (0.0-4.3) % Baso % (Auto) (0.0-1.8) % Lymph # (Auto) (1.2-5.4) K/mm3 Todd # (Auto) (0.0-0.8) K/mm3 Eos # (Auto) (0.0-0.4) K/mm3 Baso # (Auto) (0.0-0.1) K/mm3 Seg Neutrophils % (40.0-70.0) % Seg Neutrophils # (1.8-7.7) K/mm3 PT (12.2-14.9) Sec. INR (0.87-1.13) Sodium 137 (137-145) mmol/L Potassium 4.2 (3.6-5.0) mmol/L Chloride 103.7 (98-107) mmol/L Carbon Dioxide 23 (22-30) mmol/L Anion Gap 15 mmol/L BUN 16 (7-17) mg/dL Creatinine 0.9 (0.6-1.2) mg/dL Estimated GFR > 60 ml/min BUN/Creatinine Ratio 18 % Glucose 82 (65-100) mg/dL Calcium 9.3 (8.4-10.2) mg/dL Total Bilirubin 0.30 (0.1-1.2) mg/dL AST 21 (5-40) units/L ALT 18 (7-56) units/L Alkaline Phosphatase 84 (35-129) units/L Troponin T < 0.010 (0.00-0.029) ng/mL Total Protein 7.9 (6.3-8.2) g/dL Albumin 3.9 (3.9-5) g/dL Albumin/Globulin Ratio 1.0 % HCG, Qual (Negative) - EKG Data -: EKG Interpreted by Ia EKG shows normal: sinus rhythm Rate: normal - EKG Data 10/21/21 08:24 The EKG is interpreted at 07: 01 Sinus rhythm, 81 bpm. Normal axis, QTC 437 ms, there is borderline high left ventricular voltage. This EKG has nonspecific abnormalities, however, the EKG is not a STEMI - Radiology Data Radiology results: pending, report reviewed, image reviewed CHEST 2 VIEWS INDICATION: Chest Pain. COMPARISON: None FINDINGS: Support devices: None. Heart: Within normal limits. Lungs/pleura: No acute air space or interstitial disease. No pneumothorax. Additional findings: Chronic granulomatous findings are noted. IMPRESSION: Unremarkable chest Signer Name: Maximilian Arreola Jr, MD Signed: 10/21/2021 6:49 AM Workstation Name: [id number] - Medical Decision Making Differential diagnosis, including but not limited to: GERD, gastritis, hiatal hernia, costochondritis, pneumonia, coronary artery disease Assessment and plan: 26-year-old female who is not currently tachycardic, tachypneic or hypoxic, who denies DVT and pulmonary embolism risk factors, PERC negative who is low risk by Wells criteria for pulmonary embolism, EKG unremarkable, troponin negative x1, in the context of 5 days of symptoms, as per the [employer] [place] [employer] clinical policy, acute myocardial infarction is excluded with 1 set of troponin/cardiac enzymes. Patient has equal pulses in the upper and lower extremities, no pulsatile abdominal mass, and an unremarkable x-ray of the chest, therefore, aortic disease is very unlikely. Patient at low risk for major adverse cardiac event as per heart score. Given reproducibility, history and physical, do not have a high suspicion for GERD, gastritis, hiatal hernia at this time. Pneumonia is unlikely given history, physical, and x-ray findings. I find coronary artery disease of significance to be unlikely. Patient may follow-up with an outpatient primary care doctor or heel painter for her chest wall pain. She does not appear to be acutely decompensated in terms of her history of thalassemia, but she has requested information regarding local hematology groups, so we will provide her with this information as well. She moved here from [place] a few months ago, and has not established local medical care. She has previously seen [facility] for her history of Kawasaki's disease. Critical care attestation.: If time is entered above; I have spent that time in minutes in the direct care of this critically ill patient, excluding procedure time. ED Disposition Clinical Impression: Chest wall pain, History of thalassemia, Body mass index exceeds 40 Disposition: 01 HOME / SELF CARE / HOMELESS Is pt being admited?: No Does the pt Need Aspirin: No Condition: Stable Instructions: Chest Wall Pain, Nonspecific Chest Pain, Adult Additional Instructions: Please take the pain medication as needed and directed. Drink 6 cups of water per day. Consume plenty of fiber, vegetables and lean protein. Please follow-up with a primary care doctor or heel painter within the next 3 days for chest wall pain. Please follow-up with a primary care doctor or plumbing warehouse helper within the next month for history of thalassemia. Avoid heavy lifting and strenuous physical activities, exercise as tolerated, r ecommend aggressive weight loss her body mass index of 43.5. Patient may participate in physical activity and exercise as tolerated. Please return to the emergency room right away with new pain, worsened pain, migration of pain, projectile vomiting, change in mental status, confusion, inability to tolerate liquid feeds, new, worsened or different symptoms not present on the initial emergency room evaluation. [facility] is a local medical clinic. Dr. Chris is a local plumbing warehouse helper. [facility] is a local cardiology practice. Referrals: JAQUELIN CHRIS MD [Staff Physician] - 3-5 Days [facility] [Provider Group] - 3-5 Days [facility] [Provider Group] - 3-5 Days Forms: Work/School Release Form(ED) Heart Score - HEART Score History: Slightly suspicious EKG: Non-specific Age: < 45 Risk factors: 1-2 risk factors Troponin: < normal limit HEART Score: 2 - EKG Read Time Time EKG Completed: 07:01 EKG Read Time: 07:01 - Critical Actions Critical Actions: 0-3 pts:0.9-1.7%risk of adverse cardiac event.Candidate for discharge
[2021-10-21] MEDS ORDERED: FAMOTIDINE 20 MG TAB PO ONE (07:00)
[2021-10-21] MEDS ORDERED: ACETAMINOPHEN 325 MG TAB PO ONE (07:00)
[2021-10-21] MEDS ORDERED: IBUPROFEN 400 MG TAB PO ONE (07:00)
[2021-10-21 07:22] LABS: Basophils % (Auto) 0.4 % (0.0-1.8); Eosinophils # (Auto) 0.1 K/mm3 (0.0-0.4); Eosinophils % (Auto) 1.8 % (0.0-4.3); Hemoglobin 12.2 gm/dl (10.1-14.3); Lymphocytes # (Auto) 1.5 K/mm3 (1.2-5.4); Lymphocytes % (Auto) 18.3 % (13.4-35.0); Mean Corpuscular HGB Conc 31 % (30-34); Mean Corpuscular Volume 85 fl (79-97); Monocytes # (Auto) 0.4 K/mm3 (0.0-0.8); Monocytes % (Auto) 5.3 % (0.0-7.3); Platelet Count 293 K/mm3 (140-440); Red Blood Count 4.58 M/mm3 (3.65-5.03); Red Cell Distribution Width 13.9 % (13.2-15.2)
[2021-10-21 07:32] LABS: INR 0.94 (0.87-1.13)
--- NOTE | 2021-10-21 07:53 | XRay Report ---
CHEST 2 VIEWS INDICATION: Chest Pain. COMPARISON: None FINDINGS: Support devices: None. Heart: Within normal limits. Lungs/pleura: No acute air space or interstitial disease. No pneumothorax. Additional findings: Chronic granulomatous findings are noted. IMPRESSION: Unremarkable chest Signer Name: Maximilian Arreola Jr, MD Signed: 10/21/2021 7:49 AM Workstation Name: [id number]
[2021-10-21 08:04] LABS: Alanine Aminotransferase 18 units/L (7-56); Albumin 3.9 g/dL (3.9-5); BUN/Creatinine Ratio 18; Blood Urea Nitrogen 16 mg/dL (7-17); Calcium 9.3 mg/dL (8.4-10.2); Hemolysis Index 1
[2021-10-21 09:51] VITALS: BP 126/80
--- NOTE | 2021-10-21 18:39 | Electrocardiograph Report ---
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
== END 2021-10-21 09:50 | disposition home or self-care (01) ==
LOC: ED 06:41
DX: R07.89 Other chest pain (principal); Z86.2 Personal history of diseases of the blood and blood-forming organs and certain disorders involving the immune mechanism; Z68.41 Body mass index [BMI] 40.0-44.9, adult; G43.909 Migraine, unspecified, not intractable, without status migrainosus; Z98.890 Other specified postprocedural states; F17.200 Nicotine dependence, unspecified, uncomplicated
CPT/HCPCS: 36415; 71046; 80053; 84484; 84703; 85025; 85610; 93005; 99284

== ENCOUNTER 2022-03-23 05:53 | Emergency (ER) | payer OTHER ==
[2022-03-23 06:03] VITALS: BP 155/78
== END 2022-03-23 06:14 | disposition left against medical advice (07) ==
LOC: ED 05:53
DX: R07.89 Other chest pain (principal); Z53.21 Procedure and treatment not carried out due to patient leaving prior to being seen by health care provider